=== PATIENT | female | born 1955 | race Caucasian/White ===

== ENCOUNTER 2021-04-28 12:38 | Observation (INO) ==
[2021-04-28] MEDS ORDERED: NITROSTAT SL STA (12:47)
[2021-04-28] MEDS ORDERED: GI COCKTAIL PO ONE (12:47)
[2021-04-28] MEDS ORDERED: ASPIRIN CHEWABLE PO STA (12:47)
--- NOTE | 2021-04-28 12:51 | ED.PDOC ---
General ED Provider: Dr. ALVINO ROJAS MD Chief Complaint: Chest Pain Stated Complaint: mild to mod persistent anterior chest pain tight today, nonrad, no injury, does not smoke, no fever, +cough, +family hx cad, +hx left pneumothorax and chest tube Time Seen by Provider: 04/28/21 12:44 Primary Care Provider: TAB ESTRELLA MD Nursing and Triage Documentation Reviewed and Agree: Yes Does patient meet sepsis criteria?: No System Inflammatory Response Syndrome: Not Applicable Sepsis Protocol: For patient's 13 years and over: Temp is 96.8 and below OR 101 and greater Pulse >90 BPM Resp >20/minute Acutely Altered Mental Status Are patient's symptoms suggestive of a new infection, such as: -Pneumonia -Skin, Soft Tissue -Endocarditis -UTI -Bone, Joint Infection -Implantable Device -Acute Abdominal Infection -Wound Infection -Meningitis -Blood Stream Catheter Infection -Unknown Review of Systems Review Of Systems Constitutional: Denies Fever Eyes: Denies Vision change Ears, Nose, Mouth, Throat: Denies Throat pain Respiratory: Reports Cough; Denies Short of air Cardiac: Reports Chest pain GI: Denies Abdominal pain : Denies Dysuria Musculoskeletal: Denies Neck pain Skin: Denies Rash Neurological: Denies Cognitive dysfunction All Other Systems: Other PFSH Family History Mother [place] disease FATHER Heart attack Diabetes MATERNAL GRANDFATHER [place] disease PATERNAL GRANDMOTHER Cancer PATERNAL GRANDFATHER Heart attack, Onset Age: 50 Social History Smoking and tobacco status: Former smoker Alcohol intake: current Substance use type: does not use Counseling given: No Harmony/mosque: SCIENTOLOGY Household members: spouse Housing: house Marital status: M Lives independently: No Number of children: 2 Highest education level completed: Associate degree: occupational, technical, vocational program Current occupational status: disabled Current gender identity: female Seatbelt use: always Drives intoxicated or rides with intoxicated cdl a driver: No Water heater temperature set < 120 degrees: Yes Working smoke detector in home: Yes Fire extinguisher in home: Yes Carbon monoxide detector in home: Yes Surgical History Carpal tunnel syndrome delivery delivered Endometriosis Finger joint replacement of right hand H/O laminectomy H/O laparoscopy H/O: hysterectomy History of ankle surgery History of appendectomy History of breast biopsy History of cholecystectomy History of tonsillectomy Pneumothorax after biopsy Physical Exam Physical Exam Appearance: Reports Well-nourished Ill-appearing: None Pain Distress: Mild Eyes: Reports Conjunctiva clear ENT: Denies Rhinorrhea Neck: Supple Respiratory: Reports Airway patent, Breath sounds clear and Breath sounds equal Cardiovascular: Reports RRR GI/: Reports Soft and Nontender Musculoskeletal: Reports ROM intact and No edema Skin: Reports Warm and Dry Neurological: Reports Alert and Oriented Psychiatric: Reports Affect appropriate Interpretation Radiology Interpretation Radiology Interpretation By: Radiologist Exam Interpreted: CXR Xray Comments: left base opacity EKG Interpretation Time of EKG #1: 16:18 Rate: Normal Rhythm: Sinus Interpretation: no stemi, +anterior t wave abnormality seen 10/2020 Critical Care Note Critical Care Note Total Critical Care Time (mins): 0 Course Course Hematology/Chemistry: 04/28/21 13:05 04/28/21 13:05 Orders, Labs, Meds: Lab Review 04/28/21 04/28/21 04/28/21 12:55 13:05 13:05 WBC 7.12 RBC 3.49 L Hgb 11.6 L Hct 34.5 L MCV 98.9 MCH 33.2 H MCHC 33.6 RDW Coeff of Juanita 13.0 Plt Count 169 Immature Gran % (Auto) 0.1 Neut % (Auto) 71.8 Lymph % (Auto) 18.8 Noble % (Auto) 7.2 Eos % (Auto) 2.1 Baso % (Auto) 0.0 Neut # (Auto) 5.1 Lymph # (Auto) 1.3 Noble # (Auto) 0.5 Eos # (Auto) 0.2 Baso # (Auto) 0.0 Immature Gran # (Auto) 0.0 Sodium 137.9 Potassium 4.00 Chloride 105.6 Carbon Dioxide 23.8 Anion Gap 12.50 BUN 29.9 H Creatinine 1.26 Estimated GFR (MDRD) 43.00 BUN/Creatinine Ratio 23.73 Glucose 113.8 H Calcium 9.71 Total Bilirubin 0.82 AST 61.0 H ALT 32.1 Alkaline Phosphatase 132.4 Troponin I 0.013 Total Protein 7.51 Albumin 4.39 Globulin 3.12 Albumin/Globulin Ratio 1.40 D-Dimer Adenovirus (PCR) Not detected B. pertussis DNA (PCR) Not detected B.parapertussis DNA PCR Not detected C. pneumoniae DNA (PCR) Not detected Coronavirus OC43 (PCR) Not detected Coronavirus HKU1 (PCR) Not detected Coronavirus 229E (PCR) Not detected Coronavirus NL63 (PCR) Not detected Human Metapneumovir PCR Not detected Influenza Type A (PCR) Not detected Influenza B (RT-PCR) Not detected M. pneumoniae (PCR) Not detected Parainfluenza 1 (PCR) Not detected Parainfluenza 2 (PCR) Not detected Parainfluenza 3 (PCR) Not detected Parainfluenza 4 (PCR) Not detected RSV (PCR) Not detected Entero/Rhino (PCR) Not detected SARS-CoV-2 (PCR) Not detected 04/28/21 04/28/21 13:05 14:58 WBC RBC Hgb Hct MCV MCH MCHC RDW Coeff of Juanita Plt Count Immature Gran % (Auto) Neut % (Auto) Lymph % (Auto) Noble % (Auto) Eos % (Auto) Baso % (Auto) Neut # (Auto) Lymph # (Auto) Noble # (Auto) Eos # (Auto) Baso # (Auto) Immature Gran # (Auto) Sodium Potassium Chloride Carbon Dioxide Anion Gap BUN Creatinine Estimated GFR (MDRD) BUN/Creatinine Ratio Glucose Calcium Total Bilirubin AST ALT Alkaline Phosphatase Troponin I < 0.012 Total Protein Albumin Globulin Albumin/Globulin Ratio D-Dimer 1132.39 H Adenovirus (PCR) B. pertussis DNA (PCR) B.parapertussis DNA PCR C. pneumoniae DNA (PCR) Coronavirus OC43 (PCR) Coronavirus HKU1 (PCR) Coronavirus 229E (PCR) Coronavirus NL63 (PCR) Human Metapneumovir PCR Influenza Type A (PCR) Influenza B (RT-PCR) M. pneumoniae (PCR) Parainfluenza 1 (PCR) Parainfluenza 2 (PCR) Parainfluenza 3 (PCR) Parainfluenza 4 (PCR) RSV (PCR) Entero/Rhino (PCR) SARS-CoV-2 (PCR) Orders Category Date Time Status EKG-(ED ONLY) Stat CARDIO 04/28/21 12:47 Completed NPO REMINDER: IMAGING ONCE CARE 04/28/21 13:57 Completed CBC W/ AUTO DIFF Stat LAB 04/28/21 13:05 Completed CMP [COMPREHENSIVE METABOLIC PANEL] Stat LAB 04/28/21 13:05 Completed D-DIMER Stat LAB 04/28/21 13:05 Completed RESPIRATORY PANEL 2.1 (PCR) Stat LAB 04/28/21 12:55 Completed TROPONIN I Stat LAB 04/28/21 13:05 Completed TROPONIN I Stat LAB 04/28/21 14:58 Completed Aspirin [Aspirin Chewable] MEDS 04/28/21 12:47 Discontinued 324 mg PO ONCE STA Mag-Al Plus//Lidocaine [Gi Cocktail] MEDS 04/28/21 12:47 Discontinued 30 ml PO ONCE ONE Nitroglycerin [Nitrostat] MEDS 04/28/21 12:47 Discontinued 0.4 mg SL ONCE STA CHEST, 1V AP ONLY Stat RADS 04/28/21 12:[address] CHEST PE PROTOCOL Stat RADS 04/28/21 13:57 Completed Medications Discontinued Medications Generic Name Dose Route Start Last Admin Trade Name Freq PRN Reason Stop Dose Admin Al Hydroxide/Mg Hydroxide 30 ml 04/28/21 12:47 04/28/21 13:58 Mag-Al Plus//Lidocaine 30 Ml Btl PO 04/28/21 12:48 30 ml ONCE ONE Administration Aspirin 324 mg 04/28/21 12:47 04/28/21 13:15 Aspirin 81 Mg Tab.Chew PO 04/28/21 12:48 324 mg ONCE STA Administration Nitroglycerin 0.4 mg 04/28/21 12:47 04/28/21 13:15 Nitroglycerin 0.4 Mg Tab.Subl SL 04/28/21 12:48 0.4 mg ONCE STA Administration Vital Signs: Temp Pulse Resp BP Pulse Ox 04/28/21 12:39 97.1 F L 80 22 176/78 H 98 MICHELLE Risk Score MICHELLE Risk Score: Risk Score Odds of by 30D 0 0.1 (0.1-0.2) 1 0.3 (0.2-0.3) 2 0.4 (0.3-0.5) 3 0.7 (0.6-0.9) 4 1.2 (1.0-1.5) 5 2.2 (1.9-2.6) 6 3.0 (2.5-3.6) 7 4.8 (3.8-6.1) Discharge Plan Discharge Patient Disposition: PLACED OBSERVATION Discharge Problem: Chest pain Prescriptions: No Action sertraline [Zoloft] 100 mg Tablet 100 mg PO DAILY 0RF oxycodone-acetaminophen 10-325 mg Tablet 1 tab PO Q8H PRN (Reason: Pain) 0RF pantoprazole 40 mg Tablet,Delayed Release (Dr/Ec) 40 mg PO DAILY 0RF albuterol sulfate [Ventolin HFA] 90 mcg/actuation HFA aerosol inhaler 2 puff inhalation Q6H PRN (Reason: shortness of breath or wheezing) Qty: 8.5 0RF alprazolam [Xanax] 0.5 mg tablet 0.5 mg PO Q4-6H PRN (Reason: anxiety) Qty: 20 0RF atorvastatin 10 mg tablet 10 mg PO QDAY Qty: 90 1RF clobetasol 0.05 % cream 1 applic topical QDAY Qty: 60 0RF fluticasone propion-salmeterol [Advair Diskus] 250-50 mcg/dose blister with device 1 inh inhalation BID Qty: 60 2RF fluticasone propionate [Allergy Relief (fluticasone)] 50 mcg/actuation spray,s uspension 2 spray intranasal QDAY Qty: 16 2RF Rx Instructions: administer into each nostril ipratropium bromide 21 mcg (0.03 %) spray,non-aerosol 1 spray intranasal BID Qty: 30 2RF Rx Instructions: administer into each nostril losartan 50 mg tablet 50 mg PO QDAY Qty: 90 1RF spironolactone 25 mg tablet 25 mg PO QDAY Qty: 90 1RF trazodone 100 mg tablet 100 mg PO QHS Qty: 90 1RF ED Provider: ALVINO ROJAS Condition: Stable Physician Progress Note: []tele obs admit d/w Dr Estrella
[2021-04-28 13:09] LABS: BORDETELLA PARAPERTUSSIS (PCR) NOT DETECTED (NOT DETECT); BORDETELLA PERTUSSIS (PCR) NOT DETECTED (NOT DETECT); CHLAMYDIA PNEUMONIAE (PCR) NOT DETECTED (NOT DETECT); CORONAVIRUS 229E (PCR) NOT DETECTED (NOT DETECT); CORONAVIRUS HKU1 (PCR) NOT DETECTED (NOT DETECT); CORONAVIRUS NL63 (PCR) NOT DETECTED (NOT DETECT); CORONAVIRUS OC43 (PCR) NOT DETECTED (NOT DETECT); HUMAN METAPNEUMOVIRUS (PCR) NOT DETECTED (NOT DETECT); HUMAN RHINOVIRUS/ENTEROV (PCR) NOT DETECTED (NOT DETECT); INFLUENZA B (PCR) NOT DETECTED (NOT DETECT); MYCOPLASMA PNEUMONIAE (PCR) NOT DETECTED (NOT DETECT); PARAINFLUENZA VIRUS 1 (PCR) NOT DETECTED (NOT DETECT); PARAINFLUENZA VIRUS 2 (PCR) NOT DETECTED (NOT DETECT); PARAINFLUENZA VIRUS 3 (PCR) NOT DETECTED (NOT DETECT); PARAINFLUENZA VIRUS 4 (PCR) NOT DETECTED (NOT DETECT); RESPIRATORY SYNCYTIAL V (PCR) NOT DETECTED (NOT DETECT); SARS_COV_2 (PCR) NOT DETECTED (NOT DETECT)
[2021-04-28 13:10] LABS: EOSINOPHILS # (AUTO) 0.2 K/ul (0.0-0.7); EOSINOPHILS % (AUTO) 2.1 % (0.0-7.0); HEMATOCRIT 34.5 % (37.0-47.0); HEMOGLOBIN 11.6 g/dl (12.0-16.0); IMMATURE GRANULOCYTE % (AUTO) 0.1 % (0.0-5.0); LYMPHOCYTES # (AUTO) 1.3 K/uL (0.60-3.4); LYMPHOCYTES % (AUTO) 18.8 (10.0-50.0); MEAN CORPUSCULAR HEMOGLOBIN 33.2 pg (27.0-31.0); MEAN CORPUSCULAR HGB CONC 33.6 (31.8-35.4); MEAN CORPUSCULAR VOLUME 98.9 fl (81.0-99.0); MONOCYTES # (AUTO) 0.5 K/uL (0.4-2.0); MONOCYTES % (AUTO) 7.2 (0-10); NEUTROPHILS # (AUTO) 5.1 K/ul (2.0-6.9); NEUTROPHILS % (AUTO) 71.8 % (42.2-75.2); PLATELET COUNT 169 10^3/uL (140-440); RED BLOOD COUNT 3.49 10^6/ul (4.20-5.40); WHITE BLOOD COUNT 7.12 K/ul (4.6-10.2)
[2021-04-28 13:22] LABS: ALANINE AMINOTRANSFERASE 32.1 U/L (0-35); ALBUMIN 4.39 g/dL (3.5-5.0); ALKALINE PHOSPHATASE 132.4 U/L (53-141); BILIRUBIN,TOTAL 0.82 mg/dL (0.2-1.3); BLOOD UREA NITROGEN 29.9 mg/dL (7-17); CALCIUM 9.71 mg/dL (8.4-10.2); CARBON DIOXIDE 23.8 mmol/L (22-30.0); CHLORIDE 105.6 mmol/L (98-107); CREATININE 1.26 mg/dL (0.60-1.30); GLUCOSE 113.8 mg/dL (74-106); SODIUM 137.9 mmol/L (134.5-145); TOTAL PROTEIN 7.51 g/dL (6.3-8.2)
--- NOTE | 2021-04-28 13:27 | DI ---
EXAM: Chest one view, frontal view only. HISTORY: Chest pain. COMPARISON: None. FINDINGS: Heart size normal. There are multiple old left-sided rib fractures with increased opacity along the lateral left lung base and blunting of left costophrenic angle. The right lung is clear. There is no pneumothorax. Suspect old right lateral rib fractures. No acute osseous abnormality. A few clips over the left chest. IMPRESSION: Left basilar opacity likely scarring due to previous left chest trauma. It is difficult to exclude u nderlying pneumonia given lack of prior examinations for comparison.
[2021-04-28 13:33] LABS: TROPONIN I 0.013 ng/ml (0.0000-0.120)
[2021-04-28 13:56] LABS: ADENOVIRUS (PCR) NOT DETECTED (NOT DETECT)
--- NOTE | 2021-04-28 16:02 | CT ---
EXAM: CT Angiogram Chest. HISTORY: Chest pain. COMPARISON: Radiograph earlier the same day. TECHNIQUE: Multiple axial images of the chest were obtained following intravenous administration of 100 mL Visipaque 320, low osmolar. Images were reformatted in the sagittal and coronal plane. 3-D a nd maximum intensity projection reformatted images were created on an independent workstation. FINDINGS: No pulmonary arterial filling defect. Main pulmonary artery not enlarged. No right heart strain. Heart size normal. Trace pericardial effusion. Aorta normal in caliber. The No mediastinal, hilar, or axillary lymphadenopathy. There are numerous old left-sided rib fractures noted with adjacent areas of pleural parenchymal scar ring as well as a left lower lung staple line. The lungs are otherwise clear. No suspicious pulmona ry opacity. Trace amount of left pleural fluid suspected. No pneumothorax. There are old right-sided rib fractures as well. Old appearing mild compression deformity of T9. Arelis mbar spine fusion changes are incompletely imaged. Limited images of the upper abdomen demonstrate fatty infiltration of the liver. IMPRESSION: 1. No pulmonary embolus or other acute abnormality of the chest. 2. Post-traumatic and postoperative scarring in the left lung. 3. Old bilateral rib fractures, greater on the left. Old T9 compression deformity. All CT scans are performed using dose optimization techniques as appropriate to the performed exam an d include at least one of the following: Automated exposure control, adjustment of the mA and/or kV according t o size, and the use of iterative reconstruction technique.
[2021-04-28] MEDS ORDERED: ATROPINE SULFATE PFS IVP PRN (16:20)
[2021-04-28] MEDS ORDERED: NITROSTAT SL PRN (16:20)
[2021-04-28] MEDS ORDERED: TYLENOL PO PRN (16:20)
[2021-04-28 17:38] VITALS: BMI 36.8
[2021-04-28] MEDS: TUSSIONEX PO PRN (20:57)
[2021-04-28] MEDS: TESSALON PERLES PO SCH (21:00)
[2021-04-28 21:02] LABS: BILIRUBIN,URINE Negative (NEGATIVE); CLARITY,URINE Clear (CLEAR); COLOR,URINE Yellow (YELLOW); GLUCOSE, URINE (UA) Negative (NEGATIVE); KETONES,URINE Negative (NEGATIVE); LEUKOCYTE ESTERASE ,URINE Negative (NEGATIVE); NITRITE,URINE Negative (NEGATIVE); PROTEIN,URINE Negative (NEGATIVE); URINE, BLOOD Negative (NEGATIVE); UROBILINOGEN,URINE 0.2 (0.2)
[2021-04-28] MEDS: LOVENOX SUBCUT SCH (21:05)
[2021-04-28] MEDS ORDERED: DESYREL PO SCH (23:45)
[2021-04-29 00:58] LABS: CREATINE KINASE 109.8 U/L (30-135)
[2021-04-29 01:15] LABS: TROPONIN I < 0.012 ng/ml (0.0000-0.120)
--- NOTE | 2021-04-29 06:50 | PCM ---
"Chief Complaint Chief Complaint: Chest pain and SOA. History of Present Illness History of Present Illness: The patient is a 66-year-old female with history of subglottic stenosis, recent sinusitis, essential hypertension, GERD without esophagitis, Sjogren syndrome/disease, mixed hyperlipidemia, obesity with BMI 36.8, pulmonary sarcoidosis, family history of Peter's danii but patient has tested negative through genetic testing by me. Patient is on chronic oxygen, handicap placard has been completed for her due to difficulty with ambulation and with chronic symptoms. The patient presented to the emergency room on April 28 at [address] Elise. The patient was having mild to moderate persistent anterior chest pain starting this day. The pain did not radiate there was no known injury she is not a smoker, no fever positive cough (which is chronic), family history of coronary artery disease, history of left pneumothorax and chest tube historically.Vitals showed temperature 97.1, pulse 80, respiratory rate 22, blood pressure 176/78 and pulse ox 98 review of systems reviewed no fever no throat pain, reported cough but denied shortness of breath to the emergency room team, reported chest pain, no abdominal pain no dysuria no urinary symptoms no neck pain. Physical exam appeared unremarkable. Labs showed white blood cell count 7.12, hemoglobin mild anemia 11.6, platelets 169,000. MCV was normal RDW was normal. Differential was normal. Metabolic panel showed sodium 137.9, potassium 4, chloride 105.6, BUN 29.9, creatinine 1.26, GFR 43, calcium 9.71, AST mildly elevated 61, ALT normal at 32.1. Alkaline phosphatase 132.4, troponin 0.013 D-dimer returned as elevated at 1132.39. Troponin # II was negative. Bio fire PCR was negative for all. Creatinine clearance was calculated and greater than 50. Chest x-ray was completed and showed a left basilar opacity likely scarring due to previous left chest trauma difficult to exclude underlying pneumonia.The patient had a CT of the chest which showed #1 no pulmonary embolus, no other acute abnormality of the chest. 2 posttraumatic and postoperative scarring of the left lung. Old bilateral rib fractures greater on the left old T9 compression deformity noted as well. There is no evidence of pneumonia, SIRS criteria were not met. Review of chart showed a normal mammogram in June of this year MRI of the brain done earlier this year age-related atrophic changes no evidence of MS. As noted previously she has had genetic testing and tested negative for [place]'s. The patient was given aspirin, GI cocktail and nitro in the ER with mild improvement in symptoms. I was contacted 04/28 with patient having chest pain. Line Closer Dr. Fall is supposed to be available. She has not had a stress test in the last year. No aspirin use in the last week. Based on age less than 65, greater than 3 traditional risk factors for vascular disease, no known coronary stenosis greater than 50%, no change in ST segments, less than 2 angina episodes reported in the last 24 hours, negative biomarkers and no use of aspirin, she has a MICHELLE score of 1 with a 4.7% 14-day risk of recurrent PA or urgent revascularization. It is known that patients of 0-1 or lower risk of adverse outcome compared to others of higher risk. Risk is not 0. I further risk stratify the patient by using the heart score for Major cardiac events. Heart score 5 points considered to be moderate risk of Mace of 12 to 16.6%. It was recommended at this point that the patient be admitted to observation. Patient was seen by me the morning of April 29, 2021 in room 10 81. Overnight vitals were reviewed and she remained afebrile, heart rate was noted to be between 62 to 80, blood pressure initially 176/78 in the emergency room but this changed to 133/80 and 129/70. Respiratory rate 16-20, O2 saturation noted to be 97 to 99% on room air. She was given a nasal cannula this morning at 2 L. I will have them drop this to titrate to less than 98%. Telemetry si nus rhythm EKG QRS interval was 0.08 WA interval 0.16 heart rate 79. She remained sinus rhythm throughout the evening. Input and output data was reviewed she had a total of 3 voids since admission no mention of value for bowel movements. She consumed 100% of her dinner she will be n.p.o. this morning for stress test that was ordered by me. I did start her on Lovenox. Her creatinine is slightly elevated and her GFR is greater than 50 which suggest no dose reduction. Overnight nursing notes were reviewed. Narrative from nurse at 1830 last night stabbing sharp pain worse with cough. When not coughing achiness and sore. Patient is a full code. Mild stress incontinence normal continence of BM, no edema. She has a 20-gauge LHS L and 22 LA CSL. History of rib fractures. Tussionex cough syrup helps her more than any other cough medicine and he prescribed her inhalers that were over 800 hours/month on top of her other medications unable to take medications due to cost. History of GERD, pulmonary sarcoid asthma and narrow trachea which are all known and being worked up. Observation narratives were reviewed 190. no new information. At [address] White asking for cough medication. Tessalon Perles 100 mg 4 times daily as well as Tussionex as needed every 6 hours as needed for cough. 2100 no apparent distress resting in bedCough improving. 2300 essent ially unchanged fall precautions in place. At midnight [address] DR. White again for trazodone. 01 100 patient resting in bed no apparent distress cough has improved with Tussionex. IVs flowing. Flushed well. O200 patient sleeping up ad charlie. voiding in the bathroom. IV saline locked. 04 100 shortness of breath with exertion much better compared to admission. 0500 unchanged. Denied pain no cough. RN note Dana solis patient declined Tessalon Perles noting that did not work. Cough has ceased with Tussionex. Lovenox for VTE prophylaxis ordered by me. No chest pain now. Sore from coughing. Education provided on pillow use with cough. She is not on an KACI inhibitor. Chronic pulmonary disease. Tracheal disease. As of 7:05 AM labs pending for CBC CMP. Troponins were negative x3. Plan for today is stress test and when negative discharge home to follow-up as outpatient. REVIEW OF SYMPTOMS: (Positives bolded) General: weight loss, fever, chills, night sweats, fatigue, appetite loss HEENT: blurry vision, eye pain, eye discharge, dry eyes, decreased vision, sore throat tinnitus, bloody nose, hearing loss, sinus pain/pressure (recently treated abx for sinusitis), ear pain/pressure. Respiratory: shortness of breath, cough, hemoptysis, wheezing, pleurisy, PULMONARY SARCOID, SUBGLOTTIC ST|ENOSIS following with pulm. Cardiovascular: chest pain, PND, palpitation, edema, orthopnea, syncope, swelling of extremities, SOA Gastro: Nausea, vomiting, diarrhea, hematemesis, abdominal pain, constipation, G ERD Genito: hematuria, dysuria, glycosuria, hesitancy, frequency, incontinence (stress w/ cough) [place]elo: Arthralgia, myalgia, muscle weakness, joint swelling, NSAID use Skin: rash, pruritis, sores, nail changes, skin thickening, change in wart/mole, itching, new lesions, Neuro: Migraine, numbness, ataxia, tremor, vertigo, weakness, memory loss, Irritability, dizziness Endocrine: excessive thirst, polyuria, cold intolerance, heat intolerance, goiter Psychiatric: depression, anxiety, anti-depressants, alcohol abuse, drug abuse, insomnia, change in sleep pattern and mood changes Heme/lymph: easy bruising, bleeding gums, blood clots, swollen glands, lymphedema, +Sjogren, +Sarcoid Allergic/immune: allergic rhinitis, hay fever, hives Vital Signs - 24 hr 04/28/21 12:39 04/28/21 17:15 04/28/21 17:45 Temperature 97.1 F L 98.2 F Pulse Rate 80 67 Respiratory Rate 22 16 Blood Pressure 176/78 H O2 Sat by Pulse Oximetry 98 97 97 04/28/21 20:00 04/28/21 20:57 04/29/21 05:46 Temperature 97.5 F L Pulse Rate 79 Respiratory Rate 18 20 Blood Pressure 133/80 O2 Sat by Pulse Oximetry 97 97 97 04/29/21 05:52 04/29/21 06:50 Temperature 97.5 F L 97.5 F L Pulse Rate 62 62 Respiratory Rate 18 18 Blood Pressure 129/70 129/70 O2 Sat by Pulse Oximetry 99 99 Constitutional: Appearance-No acute distress, Consistent with stated age. Orientation- Oriented x 3, alert Build and Nutrition-[obese female] General- Patient is pleasant and cooperative with the interview and exam. Integumentary: General-No rashes, ulcers or lesions. Palpation- Normal skin moisture/turgor. Skin is warm to touch, appropriate. Capillary refill is normal bilateral Upper and lower extremity. Head/Neck: Head- normocephalic and atraumatic. Neck- without visible/palpable lumps or pulsations. Palpation- No bony tenderness about head/neck along frontal, occipital, temporal, parietal, mastoid, jawline, zygoma, orbit or any other location. NO temporal artery tenderness. No TMJ tenderness. Neck Supple. Thyroid-No thyromegaly, no nodules Eye: Bilaterally PERRLA, EOMI. No discharge. Upper and lower eyelids are no rmal. Sclera/conjunctiva normal without discharge. Cornea is normal and clear. Lens is normal. Eyeball appears normal. No ciliary flushing, no conjunctival injection. ENMT: Pinna- normal without tenderness or erythema. External auditory canal Left- normal without erythema or discharge, no excessive cerumen. External auditory canal Right-normal without erythema or discharge, no excessive cerumen. TM left- Somers/pearly, normal light reflex and anatomy TM Right- Somers/pearly, normal light reflex and anatomy Hearing Assessment-normal to conversational speech. Nose and sinus- No sinus tenderness along frontal/maxillary region. External appearance normal and midline. Nares- bilateral quiet airflow, no discharge. Nasal mucosa- No bleeding noted and no ulcerations observed. [place], moist. Turbinates non boggy. Lips- normal color, moist without cracks/lesions Oral Cavity/Palate- hard/soft palate intact without lesions, oral mucosa pink and moist. Tongue normal midline. Oropharynx- no pharyngeal erythema, Uvula midline. No post nasal drip. No exudate. Salivary glands- Non tender to pal pation CHEST/LUNG: Inspection- symmetric chest wall no pectus deformity. Normal effort, no distress, no use of accessory muscles. Palpation- non tender sternum, ribline. No abnormal pulsations. Auscultation- Breath sounds decreased/coarse throughout all lung hobson. Normal tracheal sounds high pitched/raspy, +Stridor (chronic w/ subglottic stenosis),bronchial sounds overlying sternum coarse/airy/raspy, Bronchovessicular sounds between scapulae posteriorly were normal. Normal vessicular breath sounds heard throughout periphery. No consolidation. Scattered rhonchi. Sparse wheezing. Lungs are essentially clear/baseline today. She has known puljm sarcoid, chronic cough/breathing difficulty. Adventitious sounds- scattered/sparse wheezes, no rales, no egophany, scattered rhonchi. CARDIOVASCULAR: Carotid artery- normal, no bruits or abnormal pulsations. Jugular vein- no pulsations. Palpation/Percussion- Normal PMI, no palpable thrill Auscultation- Regular rate and rhythm. No murmur noted in sitting, supine positions. Extremities- no digital clubbing, cyanosis, edema, increased warmth. No atypical rhythm noted on exam/tele. ABDOMEN:Inspection- normal and no visible pulsations. Normal contour. Auscultation- Bowel sounds normal, no abdominal bruits. Palpation/Percussion- soft, non-tender, no rebound tenderness, no rigidity (guarding), no jar tenderness, no masses. Liver-no hepatomegaly, Spleen no splenomegaly, Hernias - none. Rectal not examined. Peripheral Vascular: Upper extremity Left- Normal temperature with pink nailbeds and no ulcerations. Upper extremity Right- Normal temperature with pink nailbeds and no ulcerations. Lower extremity- Normal temperature with pink nailbeds and no ulcerations. DP pulses 2+ bilaterally. Pedal hair intact. Normal capillary refill. Edema- No edema. Musculoskeletal: Generalized-No generalized swelling or edema of extremities, no digital clubbing or cyanosis, neurovascularly intact all four extremities. Upper extremity- Symmetrical posture. No visible deformity. Normal sensation along medial and lateral upper extremity proximally and distally. NO tenderness overlying shoulder, lateral/medial epicondyle. Yarn Polishing Machine Operator 5/5 and strength 5/5 bilateral UE. Elbow palpated, no tenderness overlying olecranon. Normal supination, pronation to active/passive ROM and to resisted rotation. Bicep insertion/tricep insertion appear normal without obvious pathology. Rotator cuff evaluated and intact. Normal wrist ROM bilaterally. Normal hand movement, intrinsic muscles of hands normal. No tenderness to palpation of hands/wrists/elbows. Lower extremity- Hip: Not tender to palpation, no pain, no swelling, edema or erythema of surrounding tissue, normal strength and tone. Normal appearing hip ROM bilaterally without pain. Knee: Knee ROM normal. No tenderness overlying trochanters, no tenderness about patella, quad tendon, patellar tendon. No tenderness at tibial tuberosity. Ankle: normal ROM not tender to palpation along medial/lateral malleolus. Foot: Normal movement of toes, no tenderness bilateral feet/toes. Spine/Ribs- Back pain: No spinous process tenderness along C/T/L spine. Paraspinal tenderness present bilaterally along thoracic and lumbar region. Hip flexion 5/5 bilat, knee extension 5/5 bilat, knee flexion 5/5 bilat. Ankle dorsiflexion and plantar flexion 5/5 bilaterally. Hallux strength normal symmetrical, no atrophy. No ankle clonus. Normal reflexes, symmetrical. no foot drop. Normal sensation to light touch bilaterally. Neurological: General- Moves all 4 extremities symmetrically. Symmetrical face and body posture. Cranial nerves- individually evaluated II-XII and intact. PERRLA, Normal EOMI, visual/special senses appear intact, Face is symmetrical and normal sensation/movement, normal tongue, normal strength/posture of neck musculature. Reflexes- intact with DTR 2+ patellar, Achilles, bicep, brachial, tricep. Ankle clonus normal with 2 beats. Strength- 5/5 bilateral UE and LE. Soft touch- intact bilateral UE and LE. Temperature sensation- intact bilateral UE and LE Neuropsych: Oriented- Person, place, time. (AAOx3), Mood/affect- normal and congruent. Able to articulate well. Speech-Normal speech, normal rate, normal tone, normal use of language, volume and coherence. Thought content- normal with ability to perform basic computations and apply abstract thought/reason. Associations- intact, no SI/HI, no hallucinations, delusions, obsessions. Judgment/insight- Appropriate. Memory-Recall intact, remote and recent memory intact. Knowledge- Age appropriate fund of knowledge, concentration and attention span normal. Lymphatic: Head/Neck- normal size and non tender to palpation. Axillary- normal size and non tender to palpation. Femoral and Inguinal- normal size and non tender to palpation. Allergies Allergies Allergy/AdvReac Type Severity Reaction Status Date / Time erythromycin base AdvReac Severe other Verified 04/28/21 17:01 Sulfa (Sulfonamide AdvReac Severe Anaphylaxis Verified 04/28/21 17:01 Antibiotics) Penicillins AdvReac Mild Rash Verified 04/28/21 17:01 [facility] Surgical History Carpal tunnel syndrome delivery delivered Endometriosis Finger joint replacement of right hand H/O laminectomy H/O laparoscopy H/O: hysterectomy History of ankle surgery History of appendectomy History of breast biopsy History of cholecystectomy History of tonsillectomy Pneumothorax after biopsy Family History Mother [place] disease FATHER Heart attack Diabetes MATERNAL GRANDFATHER Peter disease PATERNAL GRANDMOTHER Cancer PATERNAL GRANDFATHER Heart attack, Onset Age: 50 Social History (Updated 04/28/21 @ 18:11 by DARCI VALDEZ RN) Smoking and tobacco status: Former smoker Alcohol intake: current Substance use type: does not use Counseling given: No Harmony/bahai: RESTORATIONISM Household members: spouse Housing: house Marital status: M Lives independently: No Number of children: 2 Highest education level completed: Associate degree: occupational, technical, vocational program Current occupational status: disabled Current gender identity: female Seatbelt use: always Drives intoxicated or rides with intoxicated lokie driver: No Water heater temperature set < 120 degrees: Yes Working smoke detector in home: Yes Fire extinguisher in home: Yes Carbon monoxide detector in home: Yes Medications Medications: Medications Generic Name Dose Route Start Last Admin Trade Name Freq PRN Reason Stop Dose Admin Acetaminophen 650 mg 04/28/21 16:20 Acetaminophen 325 Mg Tablet PO Q4H PRN Headache Atropine Sulfate 0.5 mg 04/28/21 16:20 Atropine Sulfate Inj 1 Mg/10 Ml Disp.Syrin IVP ONCE PRN Symptomatic Bradycardia Benzonatate 100 mg 04/28/21 21:00 04/28/21 21:00 Benzonatate 100 Mg Capsule PO Not Given QID LILY Chlorphenir/Hydrocodone Polistirex 5 ml 04/28/21 20:08 04/28/21 20:57 Hydrocodone/Chlorphen Polis 5 Ml Disp.Syrin PO 5 ml Q12H PRN Administration Cough Enoxaparin Sodium 40 mg 04/28/21 20:30 04/28/21 21:05 Enoxaparin Sodium 40 Mg/0.4 Ml Syr SUBCUT 40 mg DAILY LILY Administration Nitroglycerin 0.4 mg 04/28/21 16:20 Nitroglycerin 0.4 Mg Tab.Subl SL Q5MIN X 3 DOSES PRN Chest Pain Sodium Chloride 1 syr 04/28/21 21:00 04/29/21 06:31 0.9% Sodium Chloride 10 Ml Disp.Syrin IVF 1 syr Q8HR LILY Administration Trazodone HCl 100 mg 04/28/21 23:45 04/29/21 00:14 Trazodone Hcl 50 Mg Tablet PO 100 mg BEDTIME LILY Administration Body Composition Height: 4 ft 11 in Weight: 182 lb 6 oz Body Mass Index (BMI): 36.8 Vital Signs Temperature: 97.5 F Pulse Rate: 62 Respiratory Rate: 18 Blood Pressure: 129/70 O2 Sat by Pulse Oximetry: 99 Lab/Tests/Diagnostic Imaging Lab/Tests/Diagnostic Imaging: Lab Review 04/28/21 04/28/21 04/28/21 12:55 13:05 13:05 WBC 7.12 RBC 3.49 L Hgb 11.6 L Hct 34.5 L MCV 98.9 MCH 33.2 H MCHC 33.6 RDW Coeff of Juanita 13.0 Plt Count 169 Immature Gran % (Auto) 0.1 Neut % (Auto) 71.8 Lymph % (Auto) 18.8 [place] % (Auto) 7.2 Eos % (Auto) 2.1 Baso % (Auto) 0.0 Neut # (Auto) 5.1 Lymph # (Auto) 1.3 [place] # (Auto) 0.5 Eos # (Auto) 0.2 Baso # (Auto) 0.0 Immature Gran # (Auto) 0.0 Sodium 137.9 Potassium 4.00 Chloride 105.6 Carbon Dioxide 23.8 Anion Gap 12.50 BUN 29.9 H Creatinine 1.26 Estimated GFR (MDRD) 43.00 BUN/Creatinine Ratio 23.73 Glucose 113.8 H Calcium 9.71 Total Bilirubin 0.82 AST 61.0 H ALT 32.1 Alkaline Phosphatase 132.4 Total Creatine Kinase Troponin I 0.013 Total Protein 7.51 Albumin 4.39 Globulin 3.12 Albumin/Globulin Ratio 1.40 D-Dimer Urine Color Urine Clarity Urine pH Ur Specific [place] Urine Protein Urine Glucose (UA) Urine Ketones Urine Blood Urine Nitrite Urine Bilirubin Urine Urobilinogen Ur Leukocyte Esterase Adenovirus (PCR) Not detected B. pertussis DNA (PCR) Not detected B.parapertussis DNA PCR Not detected C. pneumoniae DNA (PCR) Not detected Coronavirus OC43 (PCR) Not detected Coronavirus HKU1 (PCR) Not detected Coronavirus 229E (PCR) Not detected Coronavirus NL63 (PCR) Not detected Human Metapneumovir PCR Not detected Influenza Type A (PCR) Not detected Influenza B (RT-PCR) Not detected M. pneumoniae (PCR) Not detected Parainfluenza 1 (PCR) Not detected Parainfluenza 2 (PCR) Not detected Parainfluenza 3 (PCR) Not detected Parainfluenza 4 (PCR) Not detected RSV (PCR) Not detected Entero/Rhino (PCR) Not detected SARS-CoV-2 (PCR) Not detected 04/28/21 04/28/21 04/28/21 13:05 14:58 20:55 WBC RBC Hgb Hct MCV MCH MCHC RDW Coeff of Juanita Plt Count Immature Gran % (Auto) Neut % (Auto) Lymph % (Auto) [place] % (Auto) Eos % (Auto) Baso % (Auto) Neut # (Auto) Lymph # (Auto) [place] # (Auto) Eos # (Auto) Baso # (Auto) Immature Gran # (Auto) Sodium Potassium Chloride Carbon Dioxide Anion Gap BUN Creatinine Estimated GFR (MDRD) BUN/Creatinine Ratio Glucose Calcium Total Bilirubin AST ALT Alkaline Phosphatase Total Creatine Kinase Troponin I < 0.012 Total Protein Albumin Globulin Albumin/Globulin Ratio D-Dimer 1132.39 H Urine Color Yellow Urine Clarity Clear Urine pH 5.0 Ur Specific [place] 1.010 Urine Protein Negative Urine Glucose (UA) Negative Urine Ketones Negative Urine Blood Negative Urine Nitrite Negative Urine Bilirubin Negative Urine Urobilinogen 0.2 Ur Leukocyte Esterase Negative Adenovirus (PCR) B. pertussis DNA (PCR) B.parapertussis DNA PCR C. pneumoniae DNA (PCR) Coronavirus OC43 (PCR) Coronavirus HKU1 (PCR) Coronavirus 229E (PCR) Coronavirus NL63 (PCR) Human Metapneumovir PCR Influenza Type A (PCR) Influenza B (RT-PCR) M. pneumoniae (PCR) Parainfluenza 1 (PCR) Parainfluenza 2 (PCR) Parainfluenza 3 (PCR) Parainfluenza 4 (PCR) RSV (PCR) Entero/Rhino (PCR) SARS-CoV-2 (PCR) 04/29/21 00:33 WBC RBC Hgb Hct MCV MCH MCHC RDW Coeff of Juanita Plt Count Immature Gran % (Auto) Neut % (Auto) Lymph % (Auto) [place] % (Auto) Eos % (Auto) Baso % (Auto) Neut # (Auto) Lymph # (Auto) [place] # (Auto) Eos # (Auto) Baso # (Auto) Immature Gran # (Auto) Sodium Potassium Chloride Carbon Dioxide Anion Gap BUN Creatinine Estimated GFR (MDRD) BUN/Creatinine Ratio Glucose Calcium Total Bilirubin AST ALT Alkaline Phosphatase Total Creatine Kinase 109.8 Troponin I < 0.012 Total Protein Albumin Globulin Albumin/Globulin Ratio D-Dimer Urine Color Urine Clarity Urine pH Ur Specific [place] Urine Protein Urine Glucose (UA) Urine Ketones Urine Blood Urine Nitrite Urine Bilirubin Urine Urobilinogen Ur Leukocyte Esterase Adenovirus (PCR) B. pertussis DNA (PCR) B.parapertussis DNA PCR C. pneumoniae DNA (PCR) Coronavirus OC43 (PCR) Coronavirus HKU1 (PCR) Coronavirus 229E (PCR) Coronavirus NL63 (PCR) Human Metapneumovir PCR Influenza Type A (PCR) Influenza B (RT-PCR) M. pneumoniae (PCR) Parainfluenza 1 (PCR) Parainfluenza 2 (PCR) Parainfluenza 3 (PCR) Parainfluenza 4 (PCR) RSV (PCR) Entero/Rhino (PCR) SARS-CoV-2 (PCR) Orders Category Date Time Status ADMIT OBSERVATION [PLACE PATIENT OBSERVATION] .TO ADMISSION 04/28/21 16:20 Active MEDSURG (MONITORED BED) DOBUTAMINE STRESS ECHO Routine CARDIO 04/28/21 20:22 Ordered EKG-(ED ONLY) Stat CARDIO 04/28/21 12:47 Completed EKG-(IP & OP ONLY) DAILY CARDIO 04/29/21 06:00 Ordered EKG-(IP & OP ONLY) DAILY CARDIO 04/30/21 06:00 Ordered OXYGEN Routine CARDIO 04/28/21 16:21 Active ACTIVITY .BR with BRP CARE 04/28/21 16:21 Active IP: INSERT SALINE LOCK ONCE CARE 04/28/21 16:21 Active NPO REMINDER: IMAGING ONCE CARE 04/28/21 13:57 Completed TELEMETRY MONITORING TELE CARE 04/28/21 16:20 Completed TELEMETRY MONITORING TELE CARE 04/28/21 16:21 Active VITAL SIGNS Q8HR CARE 04/28/21 16:21 Active CARDIAC DIET DIETARY 04/28/21 Dinner Ordered CONSULT UTILITY CLERK ONCE UTILITY CLERK 04/28/21 17:38 Active CBC W/ AUTO DIFF DAILY@0600 LAB 04/29/21 06:00 Ordered CBC W/ AUTO DIFF DAILY@0600 LAB 04/30/21 06:00 Ordered CBC W/ AUTO DIFF Stat LAB 04/28/21 13:05 Completed CMP [COMPREHENSIVE METABOLIC PANEL] DAILY@0600 LAB 04/29/21 06:00 Ordered CMP [COMPREHENSIVE METABOLIC PANEL] DAILY@0600 LAB 04/30/21 06:00 Ordered CMP [COMPREHENSIVE METABOLIC PANEL] Stat LAB 04/28/21 13:05 Completed CREATINE KINASE Q8H LAB 04/28/21 16:30 Ordered CREATINE KINASE Q8H LAB 04/29/21 00:33 Completed D-DIMER Stat LAB 04/28/21 13:05 Completed RESPIRATORY PANEL 2.1 (PCR) Stat LAB 04/28/21 12:55 Completed TROPONIN I Q8H LAB 04/28/21 16:30 Ordered TROPONIN I Q8H LAB 04/29/21 00:33 Completed TROPONIN I Stat LAB 04/28/21 13:05 Completed TROPONIN I Stat LAB 04/28/21 14:58 Completed URINALYSIS C & S IF INDICATED Stat LAB 04/28/21 20:55 Completed 0.9 % Sodium Chloride [Saline Flush] MEDS 04/28/21 21:00 Active 1 syr IVF Q8HR Acetaminophen [Tylenol] MEDS 04/28/21 16:20 Active 650 mg PO Q4H PRN Aspirin [Aspirin Chewable] MEDS 04/28/21 12:47 Discontinued 324 mg PO ONCE STA Atropine Sulfate Inj [Atropine Sulfate Pfs] MEDS 04/28/21 16:20 Active 0.5 mg IVP ONCE PRN Benzonatate [Tessalon Perles] MEDS 04/28/21 21:00 Active 100 mg PO QID Enoxaparin Sodium [Lovenox] MEDS 04/28/21 20:30 Active 40 mg SUBCUT DAILY Hydrocodone/Chlorphen Polis [Tussionex] MEDS 04/28/21 20:08 Active 5 ml PO Q12H PRN Mag-Al Plus//Lidocaine [Gi Cocktail] MEDS 04/28/21 12:47 Discontinued 30 ml PO ONCE ONE Nitroglycerin [Nitrostat] MEDS 04/28/21 12:47 Discontinued 0.4 mg SL ONCE STA Nitroglycerin [Nitrostat] MEDS 04/28/21 16:20 Active 0.4 mg SL Q5MIN X 3 DOSES PRN Trazodone HCl [Desyrel] MEDS 04/28/21 23:45 Active 100 mg PO BEDTIME RESUSCITATION STATUS Routine OTHERS 04/28/21 17:38 Ordered CHEST, 1V AP ONLY Stat RADS 04/28/21 12:47 Completed CHEST, 1V AP ONLY Stat RADS 04/29/21 07:[address] CHEST PE PROTOCOL Stat RADS 04/28/21 13:57 Completed Medications Generic Name Dose Route Start Last Admin Trade Name Ceasar PRN Reason Stop Dose Admin Acetaminophen 650 mg 04/28/21 16:20 Acetaminophen 325 Mg Tablet PO Q4H PRN Headache Atropine Sulfate 0.5 mg 04/28/21 16:20 Atropine Sulfate Inj 1 Mg/10 Ml Disp.Syrin IVP ONCE PRN Symptomatic Bradycardia Benzonatate 100 mg 04/28/21 21:00 04/28/21 21:00 Benzonatate 100 Mg Capsule PO Not Given QID LILY Chlorphenir/Hydrocodone Polistirex 5 ml 04/28/21 20:08 04/28/21 20:57 Hydrocodone/Chlorphen Polis 5 Ml Disp.Syrin PO 5 ml Q12H PRN Administration Cough Enoxaparin Sodium 40 mg 04/28/21 20:30 04/28/21 21:05 Enoxaparin Sodium 40 Mg/0.4 Ml Syr SUBCUT 40 mg DAILY LILY Administration Nitroglycerin 0.4 mg 04/28/21 16:20 Nitroglycerin 0.4 Mg Tab.Subl SL Q5MIN X 3 DOSES PRN Chest Pain Sodium Chloride 1 syr 04/28/21 21:00 04/29/21 06:31 0.9% Sodium Chloride 10 Ml Disp.Syrin IVF 1 syr Q8HR LILY Administration Trazodone HCl 100 mg 04/28/21 23:45 04/29/21 00:14 Trazodone Hcl 50 Mg Tablet PO 100 mg BEDTIME LILY Administration Discontinued Medications Generic Name Dose Route Start Last Admin Trade Name Ceasar PRN Reason Stop Dose Admin Al Hydroxide/Mg Hydroxide 30 ml 04/28/21 12:47 04/28/21 13:58 Mag-Al Plus//Lidocaine 30 Ml Btl PO 04/28/21 12:48 30 ml ONCE ONE Administration Aspirin 324 mg 04/28/21 12:47 04/28/21 13:15 Aspirin 81 Mg Tab.Chew PO 04/28/21 12:48 324 mg ONCE STA Administration Nitroglycerin 0.4 mg 04/28/21 12:47 04/28/21 13:15 Nitroglycerin 0.4 Mg Tab.Subl SL 04/28/21 12:48 0.4 mg ONCE STA Administration CXR: IMPRESSION: Left basilar opacity likely scarring due to previous left chest trauma. It is difficult to exclude underlying pneumonia given lack of prior examinations for comparison. CT CHEST IMPRESSION: 1. No pulmonary embolus or other acute abnormality of the chest. 2. Post-traumatic and postoperative scarring in the left lung. 3. Old bilateral rib fractures, greater on the left. Old T9 compression deformity. Assessment (1) Chest pain: Status: Acute Code(s): R07.9 - Chest pain, unspecified SNOMED Code(s): 49368797 (2) Subglottic stenosis: Status: Acute Code(s): J38.6 - Stenosis of larynx SNOMED Code(s): 35152648 (3) PAPITO (acute kidney injury): Status: Acute Code(s): N17.9 - Acute kidney failure, unspecified SNOMED Code(s): 33897826 (4) Pulmonary sarcoidosis: Status: Acute Code(s): D86.0 - Sarcoidosis of lung SNOMED Code(s): 38483137 (5) GERD without esophagitis: Status: Acute Code(s): K21.9 - Gastro-esophageal reflux disease without esophagitis SNOMED Code(s): 569931850 (6) Sjogren's disease: Status: Acute Code(s): M35.00 - Sjogren syndrome, unspecified SNOMED Code(s): 31071470 (7) BMI 36.0-36.9,adult: Status: Acute Code(s): Z68.36 - Body mass index [BMI] 36.0-36.9, adult SNOMED Code(s): 899120328 (8) Elevated blood pressure reading with diagnosis of hypertension: Status: Acute Code(s): I10 - Essential (primary) hypertension SNOMED Code(s): 88410070 (9) Insomnia: Status: Acute Code(s): G47.00 - Insomnia, unspecified SNOMED Code(s): 930414108 (10) Elevated d-dimer: Status: Acute Code(s): R79.89 - Other specified abnormal findings of blood chemistry SNOMED Code(s): 371078064 Plan Plan: Chest pain/COUGH/SOA: DDX for chest pain is vast. We discussed typical history and examination findings for chest pain and heart attack today. MICHELLE of 1. HEART SCORE reviewed and 5 points with MACE risk of 12-16%. We discussed that multiple organ systems can be the cause for this complaint. We reviewed possible causes to include cardiac etiologies: ACS, pericarditis, pericardial effusion, respiratory issues to include bronchitis/asthma/COPD/bronchospasm, PE (+Ddimer negative CTA), GI problems to include esophageal spasm/achalasia, Hiatal hernia, GERD, PUD, Liver disease/pancreatic disease, renal disease. Chest wall pain/costochondritis. Will check labs as listed. We discussed risks and benefits to stress test. We will try to get dobutamine stress today. Reviewed overnight tele, vitals, labs. Labs this am pending as of 7:15. Limit activities until stress testing is completed. Known sarcoid, known subglottic stenosis, known chronic cough, known history of rib fractures. REcent sinusitis on 04/19/21 treated w/ abx. No e/o pneumonia now. Troponin negative x 3, EKG without concerning changes. Chest imaging negative. Covid negative. Biofire negative, SIRS criteria NOT MET. No e/o pneumonia at this time. - Admit obs - tele - am labs CBC/CMP - Stress test in the am. - Tussionex started by ER provider - GERD mes to continue protonix 40mg daily - Advair to continue, rinse mouth. Subglottic stenosis: needs f/u with pulm as outpatient. Pulmonary Sarcoid/Sjogren: Chronic problems not acute. These need to continue follow-up with specialists. GERD: Established/Chronic problem. Stable at present. Discussed consideration of regular F/U with GI to monitor for changes that can sometimes occur with chronic GERD. We reviewed SE of PPI. We have discussed R/B/A to these agents. Offered handout on current and new medications. We reviewed latest news regarding bone loss, regarding risks for Cdiff, PA risks, Bacterial peritonitis, interstitial nephritis, Pneumonia risks due to [facility] use of PPI. - Continue PPI Protonix. Elevated BP: Resolved. Initially elevated at admit, overnight vitals reviewed and resolved. - Continue home meds. - Not on kaci-I. BMI 36.8: Discussed the federal guidelines suggest a healthy goal BMI of 18.5- 24.9 for people 18 65 and 23-30 for people age 65 and older. Overweight is considered BMI 25-30, Obesity 30-40 and Morbid obesity is defined as >100 lb overweight or BMI >40. With a BMI above goal, it is recommended to utilize a diet/exercise program to get back into the appropriate range. Consider referral to candle making supervisor. For BMI >40 consider referral to bariatrics. If not already monitoring intake. I would recommend at least to keep a food diary. Document everything that is consumed into a food diary. Studies have shown that patients can lose up to 2x the weight by keeping track of foods. Offered handout on weight loss techniques. Apps that may be of benefit include [employer]an[employer], Lose it. Regular exercise encouraged. Start with walking 5-10 minutes at a pace that is difficult to carry a conversation. PAPITO: She has increased from baseline creatinine 1.96-1.26. As of 73 this morning labs pending. We will attempt to limit NSAIDs. +Ddimer/DVT Prophy: CTA negative. Lovenox 40mg started daily while in hospital. CrCl >50 and no dosage change needed. No calf pain reported. + ddimer. Diet: Normal diet until midnight. NPO for stress in am. Activity: Ad charlie. Disposition: Plan for stress test this am. When negative, d/c home with jovana and need to f/u with pulmonary specialists for chronic pulmonary disease process. Total time spent on 04/29/21 75 minutes. Reviewed ED provider/nursing notes, imaging, labs, telemetery, vitals, I+O, overnight nurse narratives, discussed with patient. Contacted lab regarding am labs. 10 minute conversation with ER doctor on 04/28/21 regarding the patient. Expected length of stay 24 hours. When stress negative, prepare to d/c home."
[2021-04-29 07:37] LABS: BASOPHILS % (AUTO) 0.3 % (0.0-3.0); EOSINOPHILS # (AUTO) 0.1 K/ul (0.0-0.7); EOSINOPHILS % (AUTO) 1.7 % (0.0-7.0); HEMOGLOBIN 10.5 g/dl (12.0-16.0); IMMATURE GRANULOCYTE % (AUTO) 0.4 % (0.0-5.0); LYMPHOCYTES # (AUTO) 1.7 K/uL (0.60-3.4); LYMPHOCYTES % (AUTO) 23.1 (10.0-50.0); MEAN CORPUSCULAR HEMOGLOBIN 33.5 pg (27.0-31.0); MEAN CORPUSCULAR HGB CONC 33.9 (31.8-35.4); MONOCYTES # (AUTO) 0.6 K/uL (0.4-2.0); MONOCYTES % (AUTO) 8.8 (0-10); NEUTROPHILS # (AUTO) 4.7 K/ul (2.0-6.9); NEUTROPHILS % (AUTO) 65.7 % (42.2-75.2); PLATELET COUNT 163 10^3/uL (140-440); RED BLOOD COUNT 3.13 10^6/ul (4.20-5.40); WHITE BLOOD COUNT 7.13 K/ul (4.6-10.2)
[2021-04-29 07:50] LABS: ALANINE AMINOTRANSFERASE 24.9 U/L (0-35); ALBUMIN 3.81 g/dL (3.5-5.0); ALKALINE PHOSPHATASE 113.5 U/L (53-141); ASPARTATE AMINO TRANSFERASE 37.7 U/L (14-36); BILIRUBIN,TOTAL 0.51 mg/dL (0.2-1.3); BLOOD UREA NITROGEN 26.6 mg/dL (7-17); CALCIUM 9.22 mg/dL (8.4-10.2); CARBON DIOXIDE 22.9 mmol/L (22-30.0); CHLORIDE 108.7 mmol/L (98-107); CREATINE KINASE 96.7 U/L (30-135); CREATININE 1.14 mg/dL (0.60-1.30); GLUCOSE 97.7 mg/dL (74-106); POTASSIUM 3.9 mmol/L (3.5-5.1); SODIUM 137.1 mmol/L (134.5-145); TOTAL PROTEIN 6.71 g/dL (6.3-8.2)
[2021-04-29 08:01] LABS: TROPONIN I 0.013 ng/ml (0.0000-0.120)
[2021-04-29] MEDS: TUSSIONEX PO PRN (09:08)
[2021-04-29] MEDS: LOVENOX SUBCUT SCH (09:08)
[2021-04-29] MEDS: TESSALON PERLES PO SCH ×2 (09:08→13:41)
[2021-04-29 09:49] LABS: ALANINE AMINOTRANSFERASE 25.8 U/L (0-35); ALBUMIN 3.54 g/dL (3.5-5.0); ALKALINE PHOSPHATASE 110.8 U/L (53-141); ASPARTATE AMINO TRANSFERASE 38.6 U/L (14-36); BILIRUBIN,TOTAL 0.44 mg/dL (0.2-1.3); CALCIUM 9.14 mg/dL (8.4-10.2); CARBON DIOXIDE 21.7 mmol/L (22-30.0); CHLORIDE 107.9 mmol/L (98-107); CREATININE 1.18 mg/dL (0.60-1.30); GLUCOSE 108.7 mg/dL (74-106); POTASSIUM 4.16 mmol/L (3.5-5.1); SODIUM 135.7 mmol/L (134.5-145); TOTAL PROTEIN 6.34 g/dL (6.3-8.2)
[2021-04-29] MEDS ORDERED: DOBUTAMINE 500 MG-D5W 250 ML 500 MG/250 ML BAG IV ONE (11:09)
--- NOTE | 2021-04-29 12:25 | DOBSTECHO ---
Date of Test: 04/29/2021 Ordering Physician: DR. TAB ESTRELLA Smoking History: FORMER Reason for Examination: CHEST PAIN, SOA, HTN, HYPERLIPIDEMIA, DM2 Current Medications: ALBUTEROL, XANAX, ATORVASTATIN, ADVAIR DISKUS, FLUTICASONE, LOSARTAN, OXYCODONE, PANTOPRAZOLE, ZOLOFT, SPIRONOLACTONE, TRAZODONE Height: 4'11" Weight: 184 LBS Target Heart Rate: 132/156 S-T Segment Stage Time HR BPM BP MMHG Rhythm +/- Elevation Depression Symptoms Control Sitting 58 110/60 SR X NONE Dobutamine 250mg/D5W 5mcg/KG/mn 10mcg/KG/mn 3" 76 120/60 SR X NONE 15mcg/KG/mn 2" 68 110/60 SR X NONE 20mcg/KG/mn 2" 72 SR X NONE 25mcg/KG/mn 2" 85 130/50 SR X NONE 30mcg/KG/mn 2:04 101 SR X .25 ATROPINE 35mcg/KG/mn 40mcg/KG/mn 2" MIN POST INFUSION 96 140/50 SR X NONE 8" MIN POST INFUSION 73 SR X NONE DURATION OF INFUSION 11:04 MAXIMUM HEART RATE REACHED 103 BPM Interpretation: 1. NO EVIDENCE OF ISCHEMIA BY ST-T WAVE CHANGES FROM HEART RATE 58 BPM AT REST TO 103 BPM WITH DOBUTAMINE INFUSION AND IV ATROPINE 0.25 MG 2. NO CHEST PAIN OR DISCOMFORT 3. NORMAL LEFT VENTRICLE CONTRACTILITY AT REST AND WITH DOBUTAMINE INFUSION MTDD
--- NOTE | 2021-04-29 13:19 | ECHO2D ---
Date of Exam: 04/29/2021 Ordering Physician: DR. TAB ESTRELLA Room #: [id number] Reason for Echo: SOA, CHEST PAIN M-Mode Normal Adult Results LV Dimensions Normal Adult Results AoV Opening excursions >1.6 >1.6 LVEDD-base- 3.5-5.8 4.6 Ao root dimensions 2.0-3.7 3.3 LVESD-base- 3.1-4.6 L. Atrium dimensions 1.9-3.8 3.8 Post. Wall thickness 0.8-1.1 1.3 IV septum (thickness) 0.7-1.2 1.3 Post. Wall excursion 0.72-1.3 NORMAL Septal motion NORMAL Systolic motion R. Ventricular cavity 1.5-2.0 3.0 LVEF 60% 65% Paradoxical septal wall motion NORMAL 2-D : 2-D M Mode Echocardiogram was performed using apical four chamber and left parasternal long and short axis views. Mitral, tricuspid and aortic valves appear to be normal. Contractility of the left ventricle seems to be normal, so is the cavity size. Left atrial cavity size and aortic root appear to be normal. There is no pericardial effusion. There is no thrombus noted in the left ventricle or left atrial cavity. ENLARGED RIGHT VENTRICLE CAVITY M-MODE: MV: NORMAL AV: NORMAL TV: NORMAL PV: CHAMBER SIZE: ENLARGED RIGHT VENTRICLE CAVITY WALL MOTION: NORMAL PERICARDIUM: NORMAL INTERPRETATION: 1. LEFT VENTRICLE HYPERTROPHY 2. NORMAL VALVES 3. NORMAL LEFT VENTRICLE CONTRACTILITY AND NORMAL LEFT VENTRICLE SIZE 4. ENLARGED RIGHT VENTRICLE CAVITY MTDD
--- NOTE | 2021-04-29 13:31 | ECHOSTRESS ---
Date of Exam: 04/29/2021 Ordering Physician: DR. TAB ESTRELLA Reason for Echo: CHEST PAIN, DOBUTAMINE STRESS TEST--NO ISCHEMIA M-Mode Normal Adult Results LV Dimensions Normal Adult Results AoV Opening excursions >1.6 LVEDD-base- 3.5-5.8 Ao root dimensions 2.0-3.7 LVESD-base- 3.1-4.6 L. Atrium dimensions 1.9-3.8 Post. Wall thickness 0.8-1.1 IV septum (thickness) 0.7-1.2 Post. Wall excursion 0.72-1.3 Septal motion Systolic motion R. Ventricular cavity 1.5-2.0 LVEF 60% Paradoxical septal wall motion 2-D: NORMAL LEFT VENTRICLE CONTRACTILITY--RESTING AND WITH DOBUTAMINE INFUSION M-MODE: MV: AV: TV: PV: CHAMBER SIZE: NORMAL LEFT VENTRICLE CONTRACTILITY--RESTING AND WITH DOBUTAMINE INFUSION WALL MOTION: PERICARDIUM: INTERPRETATION: 1.NORMAL LEFT VENTRICLE CONTRACTILITY--RESTING AND WITH DOBUTAMINE INFUSION MTDD
--- NOTE | 2021-04-29 14:18 | DI ---
EXAM: Chest one view, frontal view only. HISTORY: Chest pain. COMPARISON: 1 day prior. FINDINGS: Heart size normal. No vascular congestion. Stable left lung scarring. Lungs otherwise c lear. No new opacity. Old rib fractures, greater on the left again noted. No new osseous finding. Since prior study, findings are unchanged. IMPRESSION: Stable appearance of the chest.
[2021-04-29 15:03] VITALS: BP 118/74; TEMP 97.6
--- NOTE | 2021-04-29 17:24 | PCM.DC ---
Final Diagnosis: 1. Chest pain non cardiac 2. Elevated Ddimer, negative CTA 3. Negative stress test 4. Subglottic stenosis 5. Pulmonary Sarcoid 6. PAPITO 7. GERD 8. Chronic Sarcoid 9. Sjogren 10. BMI 36.8 11. Insomnia (1) Chest pain: Status: Acute Code(s): R07.9 - Chest pain, unspecified SNOMED Code(s): 16002103 (2) Subglottic stenosis: Status: Acute Code(s): J38.6 - Stenosis of larynx SNOMED Code(s): 46256780 (3) PAPITO (acute kidney injury): Status: Acute Code(s): N17.9 - Acute kidney failure, unspecified SNOMED Code(s): 29463520 (4) Pulmonary sarcoidosis: Status: Acute Code(s): D86.0 - Sarcoidosis of lung SNOMED Code(s): 84547070 (5) GERD without esophagitis: Status: Acute Code(s): K21.9 - Gastro-esophageal reflux disease without esophagitis SNOMED Code(s): 355068354 (6) Sjogren's disease: Status: Acute Code(s): M35.00 - Sjogren syndrome, unspecified SNOMED Code(s): 38459473 (7) BMI 36.0-36.9,adult: Status: Acute Code(s): Z68.36 - Body mass index [BMI] 36.0-36.9, adult SNOMED Code(s): 612750262 (8) Elevated blood pressure reading with diagnosis of hypertension: Status: Acute Code(s): I10 - Essential (primary) hypertension SNOMED Code(s): 43135172 (9) Insomnia: Status: Acute Code(s): G47.00 - Insomnia, unspecified SNOMED Code(s): 735766016 (10) Elevated d-dimer: Status: Acute Code(s): R79.89 - Other specified abnormal findings of blood chemistry SNOMED Code(s): 325153422 Reason for Hospitalization: Chest pain and SOA. - Chronic process with Pulmonary sarcoid, subglottic stenosis. Prognosis/Condition at Discharge: Stable/improved back to baseline. Medications at Discharge: Ambulatory Orders Medication Instructions Recorded albuterol sulfate 90 mcg/actuation 2 puff INHALATION Q6H PRN #8.5 g 04/05/21 aerosol inhaler (Ventolin HFA) alprazolam 0.5 mg tablet (Xanax) 0.5 mg PO Q4-6H PRN #20 tab 04/05/21 atorvastatin 10 mg tablet 10 mg PO QDAY #90 tab 04/05/21 fluticasone propionate 50 2 spray INTRANASAL QDAY #16 g 04/05/21 mcg/actuation nasal spray,suspension (Allergy Relief (fluticasone)) losartan 50 mg tablet 50 mg PO QDAY #90 tab 04/05/21 spironolactone 25 mg tablet 25 mg PO QDAY #90 tab 04/05/21 trazodone 100 mg tablet 100 mg PO QHS #90 tab 04/05/21 clobetasol 0.05 % topical cream 1 applic TOPICAL PRN PRN 04/28/21 fluticasone 250 mcg-salmeterol 50 2 inh INHALATION BID 04/28/21 mcg/dose blistr powdr for inhalation (Advair Diskus) ipratropium bromide 21 mcg (0.03 2 spray INTRANASAL BID 04/28/21 %) nasal spray oxycodone-acetaminophen 10 mg-325 1 tab PO Q8H PRN 04/28/21 mg tablet pantoprazole 40 mg tablet,delayed 40 mg PO DAILY 04/28/21 release sertraline 100 mg tablet (Zoloft) 100 mg PO DAILY 04/28/21 hydrocodone 10 mg-chlorpheniramine 5 ml PO Q12H PRN 10 Days #100 ml 04/29/21 8 mg/5 mL oral susp extend.rel 12hr trazodone 100 mg tablet 100 mg PO BEDTIME PRN #30 tab 04/29/21 Lab/Diagnostics: Laboratory Last Values WBC 7.13 K/ul (4.6-10.2) 04/29/21 07:15 RBC 3.13 10^6/ul (4.20-5.40) L 04/29/21 07:15 Hgb 10.5 g/dl (12.0-16.0) L 04/29/21 07:15 Hct 31.0 % (37.0-47.0) L 04/29/21 07:15 MCV 99.0 fl (81.0-99.0) 04/29/21 07:15 MCH 33.5 pg (27.0-31.0) H 04/29/21 07:15 MCHC 33.9 (31.8-35.4) 04/29/21 07:15 RDW Coeff of Juanita 13.0 % (11.6-14.8) 04/29/21 07:15 Plt Count 163 10^3/uL (140-440) 04/29/21 07:15 Immature Gran % (Auto) 0.4 % (0.0-5.0) 04/29/21 07:15 Neut % (Auto) 65.7 % (42.2-75.2) 04/29/21 07:15 Lymph % (Auto) 23.1 (10.0-50.0) 04/29/21 07:15 [place] % (Auto) 8.8 (0-10) 04/29/21 07:15 Eos % (Auto) 1.7 % (0.0-7.0) 04/29/21 07:15 Baso % (Auto) 0.3 % (0.0-3.0) 04/29/21 07:15 Neut # (Auto) 4.7 K/ul (2.0-6.9) 04/29/21 07:15 Lymph # (Auto) 1.7 K/uL (0.60-3.4) 04/29/21 07:15 [place] # (Auto) 0.6 K/uL (0.4-2.0) 04/29/21 07:15 Eos # (Auto) 0.1 K/ul (0.0-0.7) 04/29/21 07:15 Baso # (Auto) 0.0 K/uL (0-0.2) 04/29/21 07:15 Immature Gran # (Auto) 0.0 (0.0-1.0) 04/29/21 07:15 Sodium 137.1 mmol/L (134.5-145) 04/29/21 07:15 Potassium 3.90 mmol/L (3.5-5.1) 04/29/21 07:15 Chloride 108.7 mmol/L (98-107) H 04/29/21 07:15 Carbon Dioxide 22.9 mmol/L (22-30.0) 04/29/21 07:15 Anion Gap 9.40 04/29/21 07:15 BUN 26.6 mg/dL (7-17) H 04/29/21 07:15 Creatinine 1.14 mg/dL (0.60-1.30) 04/29/21 07:15 Estimated GFR (MDRD) 48.00 mL/min 04/29/21 07:15 BUN/Creatinine Ratio 23.33 04/29/21 07:15 Glucose 97.7 mg/dL (74-106) 04/29/21 07:15 Calcium 9.22 mg/dL (8.4-10.2) 04/29/21 07:15 Total Bilirubin 0.51 mg/dL (0.2-1.3) 04/29/21 07:15 AST 37.7 U/L (14-36) H 04/29/21 07:15 ALT 24.9 U/L (0-35) 04/29/21 07:15 Alkaline Phosphatase 113.5 U/L (53-141) 04/29/21 07:15 Total Creatine Kinase 96.7 U/L (30-135) 04/29/21 07:15 Troponin I 0.013 ng/ml (0.0000-0.120) 04/29/21 07:15 Total Protein 6.71 g/dL (6.3-8.2) 04/29/21 07:15 Albumin 3.81 g/dL (3.5-5.0) 04/29/21 07:15 Globulin 2.90 04/29/21 07:15 Albumin/Globulin Ratio 1.31 04/29/21 07:15 D-Dimer 1132.39 ng/mL (<500) H 04/28/21 13:05 Urine Color Yellow (YELLOW) 04/28/21 20:55 Urine Clarity Clear (CLEAR) 04/28/21 20:55 Urine pH 5.0 (5-9) 04/28/21 20:55 Ur Specific [place] 1.010 (1.005-1.030) 04/28/21 20:55 Urine Protein Negative (NEGATIVE) 04/28/21 20:55 Urine Glucose (UA) Negative (NEGATIVE) 04/28/21 20:55 Urine Ketones Negative (NEGATIVE) 04/28/21 20:55 Urine Blood Negative (NEGATIVE) 04/28/21 20:55 Urine Nitrite Negative (NEGATIVE) 04/28/21 20:55 Urine Bilirubin Negative (NEGATIVE) 04/28/21 20:55 Urine Urobilinogen 0.2 (0.2) 04/28/21 20:55 Ur Leukocyte Esterase Negative (NEGATIVE) 04/28/21 20:55 Adenovirus (PCR) Not detected (NOT DETECT) 04/28/21 12:55 B. pertussis DNA (PCR) Not detected (NOT DETECT) 04/28/21 12:55 B.parapertussis DNA PCR Not detected (NOT DETECT) 04/28/21 12:55 C. pneumoniae DNA (PCR) Not detected (NOT DETECT) 04/28/21 12:55 Coronavirus OC43 (PCR) Not detected (NOT DETECT) 04/28/21 12:55 Coronavirus HKU1 (PCR) Not detected (NOT DETECT) 04/28/21 12:55 Coronavirus 229E (PCR) Not detected (NOT DETECT) 04/28/21 12:55 Coronavirus NL63 (PCR) Not detected (NOT DETECT) 04/28/21 12:55 Human Metapneumovir PCR Not detected (NOT DETECT) 04/28/21 12:55 Influenza Type A (PCR) Not detected (NOT DETECT) 04/28/21 12:55 Influenza B (RT-PCR) Not detected (NOT DETECT) 04/28/21 12:55 M. pneumoniae (PCR) Not detected (NOT DETECT) 04/28/21 12:55 Parainfluenza 1 (PCR) Not detected (NOT DETECT) 04/28/21 12:55 Parainfluenza 2 (PCR) Not detected (NOT DETECT) 04/28/21 12:55 Parainfluenza 3 (PCR) Not detected (NOT DETECT) 04/28/21 12:55 Parainfluenza 4 (PCR) Not detected (NOT DETECT) 04/28/21 12:55 RSV (PCR) Not detected (NOT DETECT) 04/28/21 12:55 Entero/Rhino (PCR) Not detected (NOT DETECT) 04/28/21 12:55 SARS-CoV-2 (PCR) Not detected (NOT DETECT) 04/28/21 12:55 Education Provided to Patient and Family: 1. Opiate education 2. Chest pain 3. Advair/rinsing 4. Antibiotic education/steroid education 5. GERD/PPI education. Follow-ups: 1. 05/06/[address] Conklin 2. Keep f/u with specialist for GI and for pulm. Discharge Disposition: Home Hospital Course: The patient is a 66-year-old female with history of subglottic stenosis, recent sinusitis, essential hypertension, GERD without esophagitis, Sjogren syndrome/disease, mixed hyperlipidemia, obesity with BMI 36.8, pulmonary sarcoidosis, family history of Peter's danii but patient has tested negative through genetic testing by me. Patient is on chronic oxygen, handicap placard has been completed for her due to difficulty with ambulation and with chronic symptoms. The patient presented to the emergency room on April 28 at [address] Elise. The patient was having mild to moderate persistent anterior chest pain starting this day. The pain did not radiate there was no known injury she is not a smoker, no fever positive cough (which is chronic), family history of coronary artery disease, history of left pneumothorax and chest tube historically.Vitals showed temperature 97.1, pulse 80, respiratory rate 22, blood pressure 176/78 and pulse ox 98 review of systems reviewed no fever no throat pain, reported cough but denied shortness of breath to the emergency room team, reported chest pain, no abdominal pain no dysuria no urinary symptoms no neck pain. Physical exam appeared unremarkable. Labs showed white blood cell count 7.12, hemoglobin mild anemia 11.6, platelets 169,000. MCV was normal RDW was normal. Differential was normal. Metabolic panel showed sodium 137.9, potassium 4, chloride 105.6, BUN 29.9, creatinine 1.26, GFR 43, calcium 9.71, AST mildly elevated 61, ALT normal at 32.1. Alkaline phosphatase 132.4, troponin 0.013 D-dimer returned as elevated at 1132.39. Troponin # II was negative. Bio fire PCR was negative for all. Creatinine clearance was calculated and greater than 50. Chest x-ray was completed and showed a left basilar opacity likely scarring due to previous left chest trauma difficult to exclude underlying pneumonia.The patient had a CT of the chest which showed #1 no pulmonary embolus, no other acute abnormality of the chest. 2 posttraumatic and postoperative scarring of the left lung. Old bilateral rib fractures greater on the left old T9 compression deformity noted as well. There is no evidence of pneumonia, SIRS criteria were not met. Review of chart showed a normal mammogram in June of this year MRI of the brain done earlier this year age-related atrophic changes no evidence of MS. As noted previously she has had genetic testing and tested negative for Mobile's. The patient was given aspirin, GI cocktail and nitro in the ER with mild improvement in symptoms. I was contacted 04/28 with patient having chest pain. Janitor Caretaker Dr. Fall is supposed to be available. She has not had a stress test in the last year. No aspirin use in the last week. Based on age less than 65, greater than 3 traditional risk factors for vascular disease, no known coronary stenosis greater than 50%, no change in ST segments, less than 2 angina episodes reported in the last 24 hours, negative biomarkers and no use of aspirin, she has a MICHELLE score of 1 with a 4.7% 14-day risk of recurrent TX or urgent revascularization. It is known that patients of 0-1 or lower risk of adverse outcome compared to others of higher risk. Risk is not 0. I further risk stratify the patient by using the heart score for Major cardiac events. Heart score 5 points considered to be moderate risk of Mace of 12 to 16.6%. It was recommended at this point that the patient be admitted to observation. Patient was seen by me the morning of April 29, 2021 in room 10 81. Overnight vitals were reviewed and she remained afebrile, heart rate was noted to be between 62 to 80, blood pressure initially 176/78 in the emergency room but this changed to 133/80 and 129/70. Respiratory rate 16-20, O2 saturation noted to be 97 to 99% on room air. She was given a nasal cannula this morning at 2 L. I will have them drop this to titrate to less than 98%. Telemetry sinus rhythm EKG QRS interval was 0.08 ND interval 0.16 heart rate 79. She remained sinus rhythm throughout the evening. Input and output data was reviewed she had a total of 3 voids since admission no mention of value for bowel movements. She consumed 100% of her dinner she will be n.p.o. this morning for stress test that was ordered by me. I did start her on Lovenox. Her creatinine is slightly elevated and her GFR is greater than 50 which suggest no dose reduction. Overnight nursing notes were reviewed. Narrative from nurse Edwards at 1830 last night stabbing sharp pain worse with cough. When not coughing achiness and sore. Patient is a full code. Mild stress incontinence normal continence of BM, no edema. She has a 20-gauge LHS L and 22 LA CSL. History of rib fractures. Tussionex cough syrup helps her more than any other cough medicine and he prescribed her inhalers that were over 800 hours/month on top of her other medications unable to take medications due to cost. History of GERD, pulmonary sarcoid asthma and narrow trachea which are all known and being worked up. Observation narratives were reviewed 1899. no new information. At [address] White asking for cough medication. Tessalon Perles 100 mg 4 times daily as well as Tussionex as needed every 6 hours as needed for cough. 2100 no apparent distress resting in bedCough improving. 2300 essentially unchanged fall precautions in place. At midnight [address] White again for trazodone. 01 100 patient resting in bed no apparent distress cough has improved with Tussionex. IVs flowing. Flushed well. O200 patient sleeping up ad charlie. voiding in the bathroom. IV saline locked. 04 100 shortness of breath with exertion much better compared to admission. 0500 unchanged. Denied pain no cough. RN note Dana solis patient declined Tessalon Perles noting that did not work. Cough has ceased with Tussionex. Lovenox for VTE prophylaxis ordered by me. No chest pain now. Sore from coughing. Education provided on pillow use with cough. She is not on an KACI inhibitor. Chronic pulmonary disease. Tracheal disease. Labs showed anemia hemoglobin 10.5 normal MCV at 99 and platelet count of 163. White blood cell count 7.13 and stable. Metabolic panel sodium 137.1 potassium 3.9 creatinine down to 1.14. AST 37.7 ALT 24.9 troponins negative x3. Echocardiogram: INTERPRETATION: 1. LEFT VENTRICLE HYPERTROPHY 2. NORMAL VALVES 3. NORMAL LEFT VENTRICLE CONTRACTILITY AND NORMAL LEFT VENTRICLE SIZE 4. ENLARGED RIGHT VENTRICLE CAVITY. Dobutaminne Stress: Interpretation: 1. NO EVIDENCE OF ISCHEMIA BY ST-T WAVE CHANGES FROM HEART RATE 58 BPM AT REST TO 103 BPM WITH DOBUTAMINE INFUSION AND IV ATROPINE 0.25 MG 2. NO CHEST PAIN OR DISCOMFORT 3. NORMAL LEFT VENTRICLE CONTRACTILITY AT REST AND WITH DOBUTAMINE INFUSION. Patient's chest pain had resolved and plan was to discharge patient today. I did send prescription for Tussionex to the pharmacy for her. Vital Signs - 24 hr 04/28/21 17:45 04/28/21 20:00 04/28/21 20:57 Temperature 97.5 F L Pulse Rate 79 Respiratory Rate 18 20 Blood Pressure 133/80 O2 Sat by Pulse Oximetry 97 97 97 04/29/21 05:46 04/29/21 05:52 04/29/21 06:50 Temperature 97.5 F L 97.5 F L Pulse Rate 62 62 Respiratory Rate 18 18 Blood Pressure 129/70 129/70 O2 Sat by Pulse Oximetry 97 99 99 04/29/21 10:00 04/29/21 14:00 Temperature 97.6 F Pulse Rate 62 Respiratory Rate 18 Blood Pressure 118/74 O2 Sat by Pulse Oximetry 97 94 L Constitutional:Appearance-No acute distress, Consistent with stated age. Orientation- Oriented x 3, alertBuild and Nutrition-[obese female]General- Patient is pleasant and cooperative with the interview and exam. Integumentary: General-No rashes, ulcers or lesions.Palpation- Normal skin moisture/turgor. Skin is warm to touch, appropriate. Capillary refill is normal bilateral Upper and lower extremity. Head/Neck:Head- normocephalic and atraumatic.Neck- without visible/palpable lumps or pulsations.Palpation- No bony tenderness about head/neck along frontal, occipital, temporal, parietal, mastoid, jawline, zygoma, orbit or any other location. NO temporal artery tenderness. No TMJ tenderness. Neck Supple.Thyroid-No thyromegaly, no nodules Eye:Bilaterally PERRLA, EOMI. No discharge. Upper and lower eyelids are normal. Sclera/conjunctiva normal without discharge. Cornea is normal and clear. Lens is normal. Eyeball appears normal. No ciliary flushing, no conjunctival injection. ENMT:Pinna- normal without tenderness or erythema.External auditory canal L eft-normal without erythema or discharge, no excessive cerumen.External auditory canal Right-normal without erythema or discharge, no excessive cerumen.TM left- [place]/pearly, normal light reflex and anatomyTM Right- [place]/pearly, normal light reflex and anatomyHearing Assessment-normal to conversational speech.Nose and sinus- No sinus tenderness along frontal/maxillary region. External appearance normal and midline.Nares- bilateral quiet airflow, no discharge.Nasal mucosa- No bleeding noted and no ulcerations observed. [place], moist. Turbinates non boggy.Lips-normal color, moist without cracks/lesionsOral Cavity/Palate- hard/soft palate intact without lesions, oral mucosa pink and moist. Tongue normal midline.Oropharynx- no pharyngeal erythema, Uvula midline. No post nasal drip. No exudate.Salivary glands- Non tender to palpation CHEST/LUNG:Inspection- symmetric chest wall no pectus deformity. Normal effort, no distress, no use of accessory muscles.Palpation- non tender sternum, ribline. No abnormal pulsations.Auscultation- Breath sounds decreased/coarse throughout all lung hobson. Normal tracheal sounds high pitched/raspy, +Stridor (chronic w/ subglottic stenosis),bronchial sounds overlying sternum coarse/airy/raspy, Bronchovessicular sounds between scapulae posteriorly were normal. Normal vessicular breath sounds heard throughout periphery. No consolidation. Scattered rhonchi. Sparse wheezing. Lungs are essentially clear/baseline today. She has known puljm sarcoid, chronic cough/breathing difficulty.Adventitious sounds- scattered/sparse wheezes, no rales, no egophany, scattered rhonchi. CARDIOVASCULAR:Carotid artery-normal, no bruits or abnormal pulsations. Jugular vein- no pulsations.Palpation/Percussion- Normal PMI, no palpable thrillAuscultation- Regular rate and rhythm. No murmur noted in sitting, supine positions.Extremities- no digital clubbing, cyanosis, edema, increased warmth. No atypical rhythm noted on exam/tele. ABDOMEN:Inspection- normal and no visible pulsations. Normal contour. Auscultation- Bowel sounds normal, no abdominal bruits.Palpation/Percussion- soft, non-tender, no rebound tenderness, no rigidity (guarding), no jar tenderne ss, no masses.Liver-no hepatomegaly,Spleen no splenomegaly,Hernias- none. Rectalnot examined. Peripheral Vascular:Upper extremityLeft- Normal temperature with pink nailbeds and no ulcerations.Upper extremity Right-Normal temperature with pink nailbeds and no ulcerations.Lower extremity- Normal temperature with pink nailbeds and no ulcerations. DP pulses 2+ bilaterally. Pedal hair intact. Normal capillary refill.Edema- No edema. Musculoskeletal:Generalized-No generalized swelling or edema of extremities, no digital clubbing or cyanosis, neurovascularly intact all four extremities. Upper extremity- Symmetrical posture. No visible deformity. Normal sensation along medial and lateral upper extremity proximally and distally. NO tenderness overlying shoulder, lateral/medial epicondyle. Ship Laborer 5/5 and strength 5/5 bilateral UE. Elbow palpated, no tenderness overlying olecranon. Normal supination, pronation to active/passive ROM and to resisted rotation. Bicep insertion/tricep insertion appear normal without obvious pathology. Rotator cuff evaluated and intact. Normal wrist ROM bilaterally. Normal hand movement, intrinsic muscles of hands normal. No tenderness to palpation of hands/wrists/elbows. Lower extremity- Hip: Not tender to palpation, no pain, no swelling, edema or erythema of surrounding tissue, normal strength and tone. Normal appearing hip ROM bilaterally without pain. Knee: Knee ROM normal. No tenderness overlying trochanters, no tenderness about patella, quad tendon, patellar tendon. No tenderness at tibial tuberosity. Ankle: normal ROM not tender to palpation along medial/lateral malleolus. Foot: Normal movement of toes, no tenderness bilateral feet/toes. Spine/Ribs-Back pain: No spinous process tenderness along C/T/L spine. Paraspinal tenderness present bilaterally along thoracic and lumbar region. Hip flexion 5/5 bilat, knee extension 5/5 bilat, knee flexion 5/5 bilat. Ankle dorsiflexion and plantar flexion 5/5 bilaterally. Hallux strength normal symmetrical, no atrophy. No ankle clonus. Normal reflexes, symmetrical. no foot drop. Normal sensation to light touch bilaterally. Neurological:General- Moves all 4 extremities symmetrically. Symmetrical face and body posture.Cranial nerves- individually evaluated II-XII and intact. PERRLA, Normal EOMI, visual/special senses appear intact, Face is symmetrical and normal sensation/movement, normal tongue, normal strength/posture of neck musculature.Reflexes- intact with DTR 2+ patellar, Achilles, bicep, brachial, tricep. Ankle clonus normal with 2 beats.Strength-5/5 bilateral UE and LE. Soft touch- intact bilateral UE and LE.Temperature sensation-intact bilateral UE and LE Neuropsych:Oriented- Person, place, time. (AAOx3),Mood/affect- normal and congruent. Able to articulate well.Speech-Normal speech, normal rate, normal tone, normal use of language, volume and coherence.Thought content- normal with ability to perform basic computations and apply abstract thought/reason. Associations- intact, no SI/HI, no hallucinations, delusions, obsessions. Judgment/insight- Appropriate.Memory-Recall intact, remote and recent memory intact.Knowledge- Age appropriate fund of knowledge, concentration and attention span normal. Lymphatic: Head/Neck- normal size and non tender to palpation.Axillary- normal size and non tender to palpation.Femoral and Inguinal- normal size and non tender to palpation. Plan: 1. Pulmonary Sarcoid and subglottic stenosis will require continued f/u with the injection specialist. 2. Chronic cough: will provide rx for tussionex. 3. Negative stress test today 4. Chest wall pain/costochondritis likely. Can use topical biofreeze, salonpas and even consider voltaren. Avoid contact with nipples. 5. GERD likely continue PPI. 6. PAPITO: Improved to 1.14. Continue to monitor would like CMP in 1 week. 7. Thursday05/06/21 at 1300 with me. 8. Anemia is present CBC in 1 week. Total today spent 75+ minutes on evaluation H+P and on discharge.
== END 2021-04-29 15:35 | disposition home or self-care (01) ==
LOC: ED 12:38 → MEDSURG A 12:38
PROVIDERS: ADMIT Family Medicine; ATTEND Family Medicine
DX: Z20.822 Contact with and (suspected) exposure to COVID-19; M35.00 Sjogren syndrome, unspecified; G47.00 Insomnia, unspecified; N17.9 Acute kidney failure, unspecified; J38.6 Stenosis of larynx; Z68.36 Body mass index [BMI] 36.0-36.9, adult; R79.89 Other specified abnormal findings of blood chemistry; I10 Essential (primary) hypertension; K21.9 Gastro-esophageal reflux disease without esophagitis; R07.9 Chest pain, unspecified; D86.0 Sarcoidosis of lung